=== PATIENT | male | born 1985 | race Asian ===

== ENCOUNTER 2020-01-01 06:50 | Emergency (ER) | payer MEDICAID ==
[~2020-01-01] VITALS: Ht 177.8 cm; Wt 104.3 kg
[2020-01-01 07:12] VITALS: BP_SYST 143
--- NOTE | 2020-01-01 08:08 | NUR ---
Ambulatory to [email or web address].
--- NOTE | 2020-01-01 08:09 | NUR ---
CARLOS Deng at bedside examining patient.
--- NOTE | 2020-01-01 08:11 | NUR ---
BIB brother for alcohol intoxication. Pt tried to go to [facility] for rehab d/t ETOH. they advised him to go to ER for detox and elevated HR. AAOx3, speaking clear sentences. Denies pain, Denies SI. States that he drank 1/2 bottle of vodka this morning. History of alcoholism, longest period sober was 3 years.
[2020-01-01] MEDS ORDERED: NACL 0.9% 1,000 ML IV ONE ×2 (08:15→09:30)
--- NOTE | 2020-01-01 08:15 | NUR ---
Lab at bedside for blood draw.
[2020-01-01 08:28] LABS: BASOPHILS % (AUTO) 0.8 % (0.0-2.0); EOSINOPHILS % (AUTO) 0.2 % (0.0-4.0); HEMATOCRIT 39.6 % (36-54); HEMOGLOBIN 13.2 g/dL (14.0-18.0); LYMPHOCYTES # (AUTO) 1.1 K/uL (1.0-5.5); LYMPHOCYTES % (AUTO) 28.9 % (20.5-51.5); MEAN CORPUSCULAR HEMOGLOBIN 32 pg (27-31); MEAN CORPUSCULAR HGB CONC 33 % (32-36); MEAN CORPUSCULAR VOLUME 97 fL (79.0-98.0); MONOCYTES # (AUTO) 0.5 K/uL (0.0-1.0); MONOCYTES % (AUTO) 12.4 % (1.7-9.3); NEUTROPHILS # (AUTO) 2.1 K/uL (1.8-7.7); NEUTROPHILS % (AUTO) 57.7 % (40.0-70.0); RED CELL DISTRIBUTION WIDTH 17.4 % (9.0-15.0); WHITE BLOOD COUNT (AUTO) 3.7 K/uL (4.8-10.8)
--- NOTE | 2020-01-01 08:34 | NUR ---
IVF infusing with no s/s of infiltration at this time. Will cont to monitor
[2020-01-01 08:42] LABS: BILIRUBIN,URINE NEGATIVE (NEGATIVE); CLARITY/URINE SL CLOUDY (CLEAR); COLOR,URINE YELLOW (YELLOW); GLUCOSE,URINE NEGATIVE (NEGATIVE); KETONES,URINE NEGATIVE (NEGATIVE); LEUKOCYTE ESTERASE ,URINE NEGATIVE (NEGATIVE); NITRITE, URINE NEGATIVE (NEGATIVE); PROTEIN URINE 2+ (NEGATIVE)
[2020-01-01 08:43] LABS: ANION GAP 14 (5-15); CALCIUM 8.6 mg/dL (8.4-11.0); CHLORIDE 106 mmol/L (98-107); CREATININE 0.62 mg/dL (0.55-1.30); GLUCOSE 102 mg/dL (70-99); POTASSIUM 3.3 mmol/L (3.5-5.1); SODIUM SERUM 147 mmol/L (136-145); UREA NITROGEN, BLOOD 9 mg/dL (8-21)
[2020-01-01 08:45] LABS: BLOOD, URINE TRACE (NEGATIVE)
[2020-01-01 08:51] LABS: BACTERIA,URINE FEW /HPF (None Seen); WBC,URINE 0-3 /HPF (0-3)
[2020-01-01 08:51] LABS: ALANINE AMINOTRANSFERASE 113 U/L (12-78); ALBUMIN 4.3 g/dL (3.4-4.8); ALCOHOL, BLOOD 309 mg/dL (<10); ASPARTATE AMINOTRANSFERASE 140 U/L (10-37); TOTAL BILIRUBIN 0.4 mg/dL (0.0-1.0)
[2020-01-01 08:52] LABS: CALCIUM OXALATE CRYSTALS,UR 0-10 /HPF (None Seen); MUCUS,URINE 1+ /LPF (None Seen)
[2020-01-01 08:54] LABS: ACETAMINOPHEN < 1 ug/mL (1-30); GFR AFRICAN AMERICAN 192 mL/min (>90)
[2020-01-01 08:57] LABS: BARBITURATE, URINE NEGATIVE (NEG <=200); BENZODIAZEPINE, URINE NEGATIVE (NEG <=150); CANNABINOID, URINE NEGATIVE (NEG <=50); COCAINE, URINE NEGATIVE (NEG <=150); METHAMPHETAMINES SCREEN,URINE NEGATIVE (NEG <=500); OPIATE, URINE NEGATIVE (NEG <=100); PHENCYCLIDINE SCREEN,URINE NEGATIVE (NEG <=25); UR TRICYCLIC ANTIDEPRESSANTS NEGATIVE (NEG <=300); URINE AMPHETAMINE NEGATIVE (NEG <=500); URINE METHADONE NEGATIVE (NEG <=200); URINE OXYCODONE SCREEN NEGATIVE (NEG <=100); URINE PROPOXYPHENE SCREEN NEGATIVE (NEG <=300)
[2020-01-01] MEDS ORDERED: POTASSIUM CHLORIDE 20 MEQ TAB.PRT.SR PO ONE (09:00)
[2020-01-01 09:02] LABS: PLATELET COUNT (AUTO) 97 K/uL (130-430)
[2020-01-01] MEDS ORDERED: FOLIC ACID 5 MG/ML VIAL IV ONE (09:15)
[2020-01-01] MEDS ORDERED: THIAMINE HCL 100 MG/ML VIAL IM ONE (09:15)
--- NOTE | 2020-01-01 09:48 | NUR ---
IV to rt FA noted to be infiltrated. IVF stopped, IV catheter removed intact, dressing placed, no active bleeding. Warm compress provided. Advised pt of effects of infiltration, verbalized understanding. 20g IV to left hand, IVF infusing with no s/sx of infilatration. Pt tolerated well.
--- NOTE | 2020-01-01 10:00 | NUR ---
Belinda thompson in [facility] - 01/01/20 at 1021 by SDEDSTC Medicated with breakfast tray. Sitting up, eating independently.
--- NOTE | 2020-01-01 10:00 | NUR ---
breakfast tray provided. Sitting up, eating independently.
--- NOTE | 2020-01-01 10:19 | NUR ---
Dr. eDng speaking with pt regarding ED results and follow up
--- NOTE | 2020-01-01 10:25 | NUR ---
Spoke with family, mother Capri will be here in 30 min to sweet pickle maker the pt. pt is medically cleared by
[2020-01-01 10:55] VITALS: BP_SYST 128
== END 2020-01-01 10:55 | disposition home or self-care (01) ==
LOC: SED 06:50
DX: D69.6 Thrombocytopenia, unspecified (principal); R74.0 Nonspecific elevation of levels of transaminase and lactic acid dehydrogenase [LDH]; R11.2 Nausea with vomiting, unspecified; E87.6 Hypokalemia; F10.129 Alcohol abuse with intoxication, unspecified; F41.9 Anxiety disorder, unspecified
CPT/HCPCS: 36415; 80053; 80307; 81000; 84484; 85025; 96361; 96372; 96374; 99284; G0480; G0482; J3411; J3490; J7030